=== PATIENT | male | born 1985 | race Caucasian/White ===

== ENCOUNTER 2018-06-28 15:56 | Emergency (ER) | payer SELFPAY ==
[~2018-06-28] VITALS: Ht 185.4 cm; Wt 118.0 kg
[~2018-06-28 15:56] MED LIST: IBUP200T45 PO; MUCI600T31 PO; ROBA500T PO
[2018-06-28 15:57] VITALS: BP 143/68
[2018-06-28] MEDS ORDERED: MUCI120T PO (16:30)
[2018-06-28] MEDS ORDERED: ZITHTAB PO (16:30)
[2018-06-28] MEDS ORDERED: FLON27.5 NARES (16:30)
== END 2018-06-28 16:51 | disposition home or self-care (01) ==
LOC: M ED 15:56
DX: J01.00 Acute maxillary sinusitis, unspecified (principal); F17.210 Nicotine dependence, cigarettes, uncomplicated; Z88.0 Allergy status to penicillin; Z88.2 Allergy status to sulfonamides

== ENCOUNTER 2019-09-11 07:55 | Emergency (ER) | payer MEDICAID, OTHER, SELFPAY ==
[~2019-09-11] VITALS: Ht 185.4 cm; Wt 132.0 kg
[~2019-09-11 07:55] MED LIST changes: +FLON27.5 NARES; +MUCI120T PO; +ZITHTAB PO
[2019-09-11] MEDS ORDERED: IBUPROFEN 800 MG TAB PO ONE (08:30)
[2019-09-11] MEDS ORDERED: NS 500 ML IV ONE (08:30)
[2019-09-11 08:51] LABS: BASO % 0.5 % (0.0-1.0); EOS # 0.3 10^3/uL (0.0-0.5); EOS % 4.9 % (0.0-3.0); HEMATOCRIT 39.4 % (42.0-52.0); HEMOGLOBIN 13.6 g/dl (13.5-17.5); LYMPH # 1.8 10^3/uL (1.5-5.0); LYMPH % 28.7 % (24.0-44.0); MEAN CORPUSCULAR HEMOGLOBIN 30.4 pg (27.0-33.0); MEAN CORPUSCULAR HGB CONC 34.5 g/dl (32.0-36.5); MEAN CORPUSCULAR VOLUME 88.1 fl (80.0-96.0); MONO # 0.9 10^3/uL (0.0-0.8); MONO % 15.4 % (0.0-5.0); NEUTROPHILS # 3.1 10^3/uL (1.5-8.5); NEUTROPHILS % 50.2 % (36.0-66.0); PLATELET COUNT, AUTOMATED 210 10^3/uL (150-450); RED BLOOD COUNT 4.47 10^6/uL (4.30-6.10); WHITE BLOOD COUNT 6.1 10^3/uL (4.0-10.0)
[2019-09-11 09:14] LABS: BLOOD UREA NITROGEN 5 MG/DL (7-18); C REACTIVE PROTEIN QUANTITATIV 6.89 MG/DL (0.00-0.30); CALCIUM LEVEL 8.4 MG/DL (8.5-10.1); CARBON DIOXIDE LEVEL 26 MEQ/L (21-32); CHLORIDE LEVEL 109 MEQ/L (98-107); CREATININE FOR GFR 0.59 MG/DL (0.70-1.30); GLOMERULAR FILTRATION RATE > 60.0 (>60); GLUCOSE, FASTING 96 MG/DL (70-100); NT-PRO BNP 268 PG/ML (<125); POTASSIUM SERUM 3.6 MEQ/L (3.5-5.1); SODIUM LEVEL 141 MEQ/L (136-145)
[2019-09-11 09:18] LABS: ERYTHROCYTE SEDIMENTATION RATE 33 mm/hr (0-15)
[2019-09-11] MEDS ORDERED: DOXYCYCLINE HYCLATE 100 MG in D5W MINI-BAG PLUS 100 ML IV ONE (09:30)
--- NOTE | 2019-09-11 10:45 | REP ---
Right lower extremity Duplex Doppler venous ultrasound: Real time compression and duplex Doppler interrogation of the right lower extremity deep venous system is performed. The right common femoral, superficial femoral and popliteal veins are fully compressible with transducer pressure and demonstrate normal spontaneous and phasic flow, without evidence of deep venous thrombosis. Impression: No evidence of deep venous thrombosis of the right lower extremity femoral popliteal venous system. Electronically Signed by Joon Page MD 09/11/2019 10:37 A
[2019-09-11 10:53] VITALS: BP 139/68
[2019-09-11] MEDS ORDERED: DOXY100C37 PO (10:57)
== END 2019-09-11 11:01 | disposition home or self-care (01) ==
LOC: M ED 07:55
DX: L03.115 Cellulitis of right lower limb (principal); Z72.0 Tobacco use; Z88.0 Allergy status to penicillin; Z88.2 Allergy status to sulfonamides

== ENCOUNTER 2020-01-20 20:19 | Emergency (ER) | payer SELFPAY ==
[~2020-01-20] VITALS: Ht 182.9 cm; Wt 145.7 kg
[~2020-01-20 20:19] MED LIST changes: +DOXY100C37 PO
[2020-01-20 21:53] LABS: BASO % 0.4 % (0.0-1.0); EOS # 0.4 10^3/uL (0.0-0.5); EOS % 3.9 % (0.0-3.0); HEMATOCRIT 41.2 % (42.0-52.0); HEMOGLOBIN 13.8 g/dl (13.5-17.5); LYMPH # 2.4 10^3/uL (1.5-5.0); LYMPH % 26.1 % (24.0-44.0); MEAN CORPUSCULAR HEMOGLOBIN 30.1 pg (27.0-33.0); MEAN CORPUSCULAR HGB CONC 33.5 g/dl (32.0-36.5); MONO # 1.1 10^3/uL (0.0-0.8); MONO % 11.7 % (0.0-5.0); NEUTROPHILS # 5.2 10^3/uL (1.5-8.5); NEUTROPHILS % 57.7 % (36.0-66.0); PLATELET COUNT, AUTOMATED 271 10^3/uL (150-450); RED BLOOD COUNT 4.58 10^6/uL (4.30-6.10)
[2020-01-20 22:30] LABS: ERYTHROCYTE SEDIMENTATION RATE 39 mm/hr (0-15)
[2020-01-20] MEDS ORDERED: CLINDAMYCIN 150MG CAPSULE PO ONE (22:30)
[2020-01-20] MEDS ORDERED: KETOROLAC 30 MG/ML 1ML VIAL IV ONE (22:30)
--- NOTE | 2020-01-20 22:32 | REPVR ---
PROCEDURE INFORMATION: Exam: US Duplex Lower Extremity Veins, Bilateral Exam date and time: 01/20/2020 10:15 PM Age: 34 years old Clinical indication: Pain; Leg, lower; Bilateral; Additional info: Redness, swelling, pain TECHNIQUE: Imaging protocol: Real-time duplex ultrasound of the extremities with 2-D moss scale, color Doppler flow and spectral waveform analysis with image documentation. Complete exam focused on the bilateral lower extremity veins. COMPARISON: US Duplex, Ext,LOWER veins,unilat 09/11/2019 10:25 AM FINDINGS: Right deep veins: Unremarkable. The common femoral, femoral and popliteal veins are patent without thrombus. Normal Doppler waveforms. Normal compressibility and/or augmentation response. Right superficial veins: Saphenofemoral junction is patent without thrombus. Left deep veins: Unremarkable. The common femoral, femoral and popliteal veins are patent without thrombus. Normal Doppler waveforms. Normal compressibility and/or augmentation response. Left superficial veins: Saphenofemoral junction is patent without thrombus. Soft tissues: Unremarkable. IMPRESSION: No sonographic evidence of deep vein thrombosis. Electronically signed by: Lester Coombs On 01/20/2020 22:32:11 PM
[2020-01-20] MEDS ORDERED: IBUP-1022 PO (22:44)
[2020-01-20] MEDS ORDERED: CLEO300C2 PO (22:44)
[2020-01-20 23:04] VITALS: BP 130/88
== END 2020-01-20 23:06 | disposition home or self-care (01) ==
LOC: M ED 20:19
DX: L03.116 Cellulitis of left lower limb (principal); J45.909 Unspecified asthma, uncomplicated; Z87.820 Personal history of traumatic brain injury; F17.200 Nicotine dependence, unspecified, uncomplicated; Z88.0 Allergy status to penicillin; Z88.2 Allergy status to sulfonamides
CPT/HCPCS: 80047; 85025; 85652; 86140; 87040; 93970; 96374; 99284; J1885

== ENCOUNTER 2021-02-15 16:37 | Emergency (ER) | payer SELFPAY ==
[~2021-02-15] VITALS: Ht 185.4 cm; Wt 106.8 kg
[~2021-02-15 16:37] MED LIST changes: +CLEO300C2 PO; +DOXY-443 PO; -DOXY100C37 PO; +IBUP-1022 PO
[2021-02-15 19:13] LABS: RSV AMPLIFICATION NEGATIVE (NEGATIVE)
[2021-02-15 21:13] VITALS: BP 140/88
== END 2021-02-15 21:26 | disposition home or self-care (01) ==
LOC: M ED 16:37
DX: J06.9 Acute upper respiratory infection, unspecified (principal); J45.909 Unspecified asthma, uncomplicated; Z88.0 Allergy status to penicillin; Z88.1 Allergy status to other antibiotic agents; Z88.2 Allergy status to sulfonamides; F17.210 Nicotine dependence, cigarettes, uncomplicated

== ENCOUNTER → 2023-05-27 | Outpatient (REF) | payer SELFPAY, OTHER ==
[2023-05-27 11:38] LABS: BASO % 0.5 % (0.0-1.0); EOS # 0.2 10^3/uL (0.0-0.5); EOS % 2.7 % (0.0-3.0); HEMATOCRIT 43.4 % (42.0-52.0); HEMOGLOBIN 15.1 g/dl (13.5-17.5); LYMPH # 2.9 10^3/uL (1.5-5.0); LYMPH % 34.6 % (24.0-44.0); MEAN CORPUSCULAR HEMOGLOBIN 30.1 pg (27.0-33.0); MEAN CORPUSCULAR HGB CONC 34.8 g/dl (32.0-36.5); MEAN CORPUSCULAR VOLUME 86.6 fl (80.0-96.0); MONO # 0.8 10^3/uL (0.0-0.8); MONO % 9.5 % (2.0-8.0); NEUTROPHILS # 4.4 10^3/uL (1.5-8.5); NEUTROPHILS % 52.3 % (36.0-66.0); PLATELET COUNT, AUTOMATED 310 10^3/uL (150-450); RED BLOOD COUNT 5.01 10^6/uL (4.30-6.10); WHITE BLOOD COUNT 8.4 10^3/uL (4.0-10.0)
[2023-05-27 12:14] LABS: THYROID STIMULATING HORMONE 1.809 uIU/ML (0.55-4.78)
[2023-05-27 12:18] LABS: TOTAL 25(OH) VITAMIN D 12.5 NG/ML (20.0-100.0)
[2023-05-27 12:19] LABS: ALBUMIN 3.5 G/DL (3.2-5.2); ALKALINE PHOSPHATASE 67 U/L (46-116); ALT/SGPT 37 U/L (7.0-40); AST/SGOT 24 U/L (<34); BILIRUBIN,TOTAL 0.4 MG/DL (0.3-1.2); BLOOD UREA NITROGEN 11 MG/DL (9-23); CALCIUM LEVEL 8.6 MG/DL (8.5-10.1); CARBON DIOXIDE LEVEL 28 MMOL/L (20-31); CHLORIDE LEVEL 108 MMOL/L (98-107); CHOLESTEROL LEVEL 177 MG/DL (<200); CHOLESTEROL RISK RATIO 5.25 (<5); CREATININE FOR GFR 0.77 MG/DL (0.70-1.30); GLOMERULAR FILTRATION RATE > 60.0 (>60); GLUCOSE, FASTING 81 MG/DL (60-100); HDL CHOLESTEROL 33.7 MG/DL (>40); LDL CHOLESTEROL 105.7 MG/DL (<100); NON-HDL-C 143.3 MG/DL; POTASSIUM SERUM 4.5 MMOL/L (3.5-5.1); SODIUM LEVEL 139 MMOL/L (136-145); TOTAL PROTEIN 6.7 G/DL (5.7-8.2); TRIGLYCERIDES LEVEL 188 MG/DL (<150)
== END ==
LOC: M LAB REF 11:11
PROVIDERS: ATTEND Pediatrics
DX: E55.9 Vitamin D deficiency, unspecified (principal); E66.01 Morbid (severe) obesity due to excess calories; F17.200 Nicotine dependence, unspecified, uncomplicated; Z68.43 Body mass index [BMI] 50.0-59.9, adult

== ENCOUNTER → 2023-08-24 | Outpatient (CLI) | payer OTHER ==
[~2023-08-24] MED LIST changes: +DOXY-323 PO; -DOXY-443 PO
== END ==
LOC: M RAD 13:51
PROVIDERS: ATTEND Pediatrics
DX: I83.893 Varicose veins of bilateral lower extremities with other complications (principal)

== ENCOUNTER → 2024-12-19 | Outpatient (REF) | payer OTHER ==
[~2024-12-19] MED LIST changes: -DOXY-323 PO; +DOXY-441 PO; -IBUP-1022 PO; +IBUP600T42 PO
[2024-12-19 17:33] LABS: CREATININE, URINE 171.8 MG/DL; MALB URINE SIEMENS < 3.0 MG/L
[2024-12-19 17:36] LABS: CALCIUM LEVEL 8.6 MG/DL (8.5-10.1); CARBON DIOXIDE LEVEL 24 MMOL/L (20-31); CHLORIDE LEVEL 108 MMOL/L (98-107); CHOLESTEROL LEVEL 215 MG/DL (<200); CHOLESTEROL RISK RATIO 5.81 (<5); CREATININE FOR GFR 0.79 MG/DL (0.70-1.30); GLOMERULAR FILTRATION RATE > 90.0 (>60); LDL CHOLESTEROL 133.4 MG/DL (<100); NON-HDL-C 178.0 MG/DL; POTASSIUM SERUM 3.8 MMOL/L (3.5-5.1); SODIUM LEVEL 137 MMOL/L (136-145); TRIGLYCERIDES LEVEL 223 MG/DL (<150)
[2024-12-19 17:38] LABS: ESTIMATED AVERAGE GLUCOSE 100.0 MG/DL (60-110); TOTAL 25(OH) VITAMIN D 34.4 NG/ML (20.0-100.0)
== END ==
LOC: M LAB REF 16:20
PROVIDERS: ATTEND Pediatrics
DX: R03.0 Elevated blood-pressure reading, without diagnosis of hypertension (principal); Z68.43 Body mass index [BMI] 50.0-59.9, adult; E66.1 Drug-induced obesity; E55.9 Vitamin D deficiency, unspecified

== ENCOUNTER → 2025-01-09 | Outpatient (CLI) | payer OTHER | LOC: M SOG 07:36 | PROVIDERS: ATTEND Neuromusculoskeletal Medicine, Sports Medicine | DX: M25.561 Pain in right knee (principal) ==